=== PATIENT | male | born 1995 | race Caucasian/White ===

== ENCOUNTER 2016-07-15 18:28 | Emergency (ER) | payer BC ==
[~2016-07-15] VITALS: Ht 182.9 cm; Wt 81.0 kg
[2016-07-15 18:34] VITALS: BP 131/64; PULSE 80; TEMP 36.5; O2SAT 98; Ht 182.9 cm; Wt 81.0 kg
[2016-07-15] MEDS ORDERED: ALBU18002 INH (18:48)
[2016-07-15] MEDS ORDERED: MONT1TAB3 PO (18:48)
[2016-07-15] MEDS ORDERED: CETI10TA84 PO (18:48)
[2016-07-15] MEDS ORDERED: AMOX875T PO (18:49)
[2016-07-15] MEDS ORDERED: FLUT0.15 NAE (19:00)
--- NOTE | 2016-07-15 20:33 | EMERGENCY ROOM VISIT NOTE ---
History Report prepared by Dimitryibkd: Ines Howell Under the Supervision of: Dr. Kam Angela M.D. First contact with patient: 18:39 Chief Complaint: SINUS CONGESTION/PRESSURE Stated Complaint: SWOLLEN GLANDS, PRESSURE IN SINUS Nursing Triage Summary: pt to the ED with c/o cold sx that has gotten worse and "spread to my glands" was seen [facility] [place] and was given nasal spray and ibuprofen feels no better sx for 3 wks History of Present Illness The patient is a 21 year old male who presents to the Emergency Room with complaints of worsening cold-like symptoms over the past 3 weeks. The patient complains of congestion, a sore throat, sinus pressure, and ear pain. Today, he had a subjective fever. He was seen by [facility] 3 days ago and given ibuprofen. He is immunized. Denies vomiting or other complaints. Source of History: patient Onset: 3 weeks ago Position: other (global) Quality: other (cold-like symptoms) Timing: worsening Associated Symptoms: + cough, + fevers (subjective), + sorethroat Note: Other symptoms: sinus pressure, ear pain Review of Systems See HPI for pertinent positives & negatives. A total of 6 systems reviewed and were otherwise negative. Past Medical & Surgical Medical Problems: (1) No Known Active Medical Problems Family History No pertinent family history stated. Social History Smoking Status: Never Smoker Occupation Status: [employer] student Current/Historical Medications Scheduled Amoxicillin & Pot Clavulanate (Augmentin 875-125 mg), 875 MG PO BID Cetirizine (Zyrtec), 10 MG PO HS Montelukast Sodium (Singulair), 10 MG PO HS Scheduled PRN Albuterol Sulfate (Proair Respiclick), 2 PUFFS INH Q4H PRN for Exercise Induced Asthma Fluticasone Propionate (Nasal) (Flonase Allergy Relief), 2 SPRAYS MATILDE DAILY PRN for Allergy Symptoms Allergies Coded Allergies: Azithromycin (Verified Allergy, Intermediate, Hives, 07/15/16) Physical Exam Vital Signs Date Time Temp Pulse Resp B/P Pulse Ox O2 Delivery O2 Flow Rate FiO2 07/15/16 18:34 36.5 80 16 131/64 98 Room Air Physical Exam Constitutional: Vital signs reviewed. Eyes: Pupils are equal round reactive to light. Conjunctiva are noninjected. ENT: Mild erythema to the posterior oropharynx without exudate. Mucous membranes are moist. Neck supple without meningeal signs. Mild anterior cervical lymphadenopathy. TMs clear bilaterally. Respiratory: Clear to auscultation bilaterally. Breath sounds are equal bilaterally. Cardiovascular: Regular rate and rhythm. No rubs or gallops. Neurological: The patient is awake and alert. No focal deficits. Psychiatric: Normal affect. Medical Decision & Procedures ED Course 184: The patient was evaluated in room D5. A complete history and physical exam was performed. I discussed tonight's findings with him. He verbalized agreement of the treatment plan. The patient was discharged home. Medical Decision This is a 21-year-old male who presents with cold symptoms. He has been sick for 3 weeks. He has sinus congestion, sore throat and stuffiness in his ear. Does have a mild cough but no chest pain or shortness of breath. On examination he has some anterior cervical lymphadenopathy but otherwise has a nonfocal exam. Given his symptoms have been going on for over 3 weeks I did feel it was reasonable to try antibiotics. He was given precautions regarding his medication and discharged with a prescription for Augmentin. He was advised follow with [facility]. Impression Primary Impression: Acute sinusitis Scribe Attestation The scribe's documentation has been prepared under my direct and personally reviewed by me in its entirety. I confirm that the note above accurately reflects all work, treatment, procedures, and medical decision making performed by me. Departure Information Dispostion Home / Self-Care Prescriptions Amoxicillin & Pot Clavulanate (Augmentin 875-125 mg) 1 Tab Tab 875 MG PO BID, #20 TAB Prov: Kam Angela M.D. 07/15/16 Referrals No Doctor, Assigned (PCP) Patient Instructions ED Sinusitis Abx Tx, My [facility] Additional Instructions You have been examined and treated today on an emergency basis only. This is not a substitute for, or an effort to provide, complete comprehensive medical care. It is impossible to recognize and treat all injuries or illnesses in a single emergency department visit. It is therefore important that you follow up closely with [facility]. Call as soon as possible for an appointment. Return for worsening symptoms or if you develop fever, vomiting, difficulty breathing, or any other concerning symptoms.
== END 2016-07-15 18:58 | disposition home or self-care (01) ==
LOC: C.EDB 18:35 → C.EDD 18:58
DX: J01.90 Acute sinusitis, unspecified (principal); R09.81 Nasal congestion; Z88.1 Allergy status to other antibiotic agents